=== PATIENT | female | born 1960 ===

== ENCOUNTER 2018-04-18 08:45 | Emergency (ER) | payer MEDICARE ==
[2018-04-18 08:58] VITALS: BP 104/75
--- NOTE | 2018-04-18 09:09 | UC ---
Skin Complaint HPI - HPI Summary HPI Summary: 58 yo female presents with rash to right face and swelling to right eye. She tells me that over the past 3-4 days she has had red bumps appear on her right face with mild pain. Yesterday started to spread down her right jaw. She began to itch these a lot and admits to itching her eye in the middle of the night. This morning woke up with swelling to right periorbital region - says she " could not open her eye". Has taken benadryl and says that the swelling has decreased a lot since early this morning - she is now able to her open her eye. Has mild pain around the eye. Eye is blurry due to watery drainage. Denies fever , chills, injury, contact/glasses use. - History of Current Complaint Chief Complaint: UCEye Time Seen by Provider: 04/18/18 09:09 Stated Complaint: R EYE SWOLLEN,RASH Hx Obtained From: Patient Onset/Duration: Sudden Onset Onset Severity: Mild Current Severity: Mild Pain Intensity: 2 Pain Scale Used: 0-10 Numeric - Allergy/Home Medications Allergies/Adverse Reactions: Allergies Allergy/AdvReac Type Severity Reaction Status Date / Time No Known Allergies Allergy Verified 04/18/18 08:58 Home Medications: Home Medications Atenolol TAB* [Tenormin TAB* 50 MG] 1 tab PO DAILY 04/18/18 [History Confirmed 04/18/18] Levothyroxine TAB* [Synthroid 100 MCG TAB*] 1 tab PO DAILY 04/18/18 [History Confirmed 04/18/18] Review of Systems Constitutional: Negative Skin: Rash Eyes: Other - Swelling ENT: Negative Respiratory: Negative Cardiovascular: Negative Neurovascular: Negative Neurological: Negative Psychological: Negative All Other Systems Reviewed And Are Negative: Yes PMH/Surg Hx/FS Hx/Imm Hx Endocrine History: Hypothyroidism Cardiovascular History: Hypertension - Surgical History Surgical History: None - Family History Known Family History: Positive: None - Social History Occupation: Employed Full-time Lives: With Family Alcohol Use: None Substance Use Type: None Smoking Status (MU): Light Every Day Tobacco Smoker - Immunization History Most Recent Tetanus Shot: less then 10 yrs Physical Exam - Summary Physical Exam Summary: GENERAL: NAD. WDWN. No pain distress. SKIN: Scattered erythematous and crusted lesions along right side V1 and V2 of trigem. Lesions do not cross midline. HEENT: Head: AT/NC Eyes: EOM intact. Conjunctiva clear without inflammation or purulent discharge. Moderate to severe periorbital cellulitis to RIGHT eye. No scleral injection or lesions on the eyelids. NECK: Supple. Nontender. No lymphadenopathy. CHEST: CTAB. No r/r/w. No accessory muscle use. Breathing comfortably and in no distress. CV: RRR. Without m/r/g. Pulses intact. Brisk cap refill. NEURO: Alert. CN II-XII grossly intact. PSYCH: Age appropriate behavior. Triage Information Reviewed: Yes Vital Signs: Initial Vital Signs Temp 99.1 F 04/18/18 08:54 Pulse 73 04/18/18 08:54 Resp 18 04/18/18 08:54 BP 104/75 04/18/18 08:54 Pulse Ox 98 04/18/18 08:54 Vital Signs Reviewed: Yes Course/Dx - Course Course Of Treatment: Periorbital cellulitis secondary to herpes zoster ophthalmicus. I called Dr. Antoine's office and they are able to see the pt right now. I will rx for Augmentin and Valacyclovir and have pt f/u with Dr. Antoine now. - Diagnoses Provider Diagnoses: herpes zoster ophthalmicus. Periorbital cellulitis right Discharge - Sign-Out/Discharge Documenting (check all that apply): Patient Departure - Discharge Plan Condition: Stable Disposition: HOME Prescriptions: Amoxicillin/Clavulanate TAB* [Augmentin TAB 875*] 875 mg PO BID #14 tab Valacyclovir HCl [Valacyclovir] 1,000 mg PO TID #21 tab Patient Education Materials: Shingles (ED), Periorbital Cellulitis in Adults ( ED) Referrals: No Primary Care Phys,NOPCP [Primary Care Provider] - Win Antoine MD [Medical Doctor] - As Soon As Possible Additional Instructions: If you develop a fever, shortness of breath, chest pain, new or worsening symptoms - please call your PCP or go to the ED. 1) Dr. Antoine (Eye doctor) will see you now - please go to his office at the address below - Billing Disposition and Condition Condition: STABLE Disposition: Home
== END 2018-04-18 09:30 | disposition home or self-care (01) ==
LOC: UCEAST 08:45
DX: B02.30 Zoster ocular disease, unspecified (principal); L03.213 Periorbital cellulitis; E03.9 Hypothyroidism, unspecified; I10 Essential (primary) hypertension; F17.200 Nicotine dependence, unspecified, uncomplicated
CPT/HCPCS: 99202; G0463